=== PATIENT | female | born 1950 | race Caucasian/White ===

== ENCOUNTER 2017-06-07 08:44 | Inpatient (IN) ==
--- NOTE | 2017-06-06 21:15 | Discharge Summary ---
<Kimberly Shanks - Last Filed: 06/06/17 21:13> Date of Encounter: 06/06/17 - Discharge Diagnosis (1) Instability of left knee joint Priority: Primary Status: Acute (2) Status post revision of total replacement of left knee Priority: Primary Status: Acute (3) Kidney injury Priority: Secondary Status: Chronic Qualifiers: Encounter type: sequela Laterality: unspecified laterality Qualified Code (s): S37.009S - Unspecified injury of unspecified kidney, sequela (4) Hypertension Priority: Secondary Status: Chronic Qualifiers: Hypertension type: essential hypertension Qualified Code(s): I10 - Essential (primary) hypertension (5) Obstructive sleep apnea Priority: Secondary Status: Chronic (6) Morbid obesity with BMI of 50.0-59.9, adult Priority: Secondary Status: Chronic (7) Thyroid disease Priority: Secondary Status: Chronic - Discharge Medications Home Medications: Cyclobenzaprine [Flexeril] 10 mg PO TID 07/03/16 [History] Levothyroxine [Synthroid] 50 mcg PO 0630 07/03/16 [History] Lisinopril [Zestril] 5 mg PO HS 07/03/16 [History] Nortriptyline [Pamelor] 25 mg PO HS 07/03/16 [History] Propranolol HCl [Innopran Xl] 120 mg PO DAILY 07/03/16 [History] Simvastatin [Zocor] 20 mg PO DAILY 07/03/16 [History] Triamterene/HCTZ 37.5/25mg [Dyazide] 1 each PO HS 07/03/16 [History] Aspirin Enteric Coated [Aspirin EC] 325 mg PO DAILY #21 tablet. 06/06/17 [Rx] OxyCODONE Immed Rel [Roxicodone 5 MG] 5 - 10 mg PO Q6H PRN #40 tablet 06/06/17 [ Rx] Aspirin [Lo-Dose Aspirin EC] 81 mg PO DAILY 06/07/17 [History] Allergies/Adverse Reactions: Allergies codeine Adverse Reaction (Verified 06/07/17 09:38) Chest Pain meperidine [From Demerol] Adverse Reaction (Verified 06/07/17 09:38) Chest Pain morphine Adverse Reaction (Verified 06/07/17 09:38) Itching Primary care physician: Jennifer Jimenez CNP - Patient Status Disposition: Transfer Inpatient Rehab Fac Condition: Good - Discharge Instructions Follow Up With: Jennifer Jimenez CNP [Primary Care Provider] - - Hospital Course Hospital course: Ms. Concepcion is a 67 year old female - Time Spent with Patient Total time spent providing and/or coordinating discharge services: <Selwyn Galdamez - Last Filed: 06/09/17 08:56> Date of Encounter: 06/09/17 Time of Encounter: 08:56 - Discharge Diagnosis (1) Hypertension Priority: Secondary Status: Chronic Qualifiers: Hypertension type: essential hypertension Qualified Code(s): I10 - Essential (primary) hypertension (2) Obstructive sleep apnea Priority: Secondary Status: Chronic (3) Morbid obesity with BMI of 50.0-59.9, adult Priority: Secondary Status: Chronic (4) Thyroid disease Priority: Secondary Status: Chronic (5) Instability of left knee joint Status: Acute (6) Status post revision of total replacement of left knee Priority: Primary Status: Acute Primary care physician: Jennifer Jimenez CNP - Patient Status Functional capacity at discharge: uses cane/walker Overall status at discharge: patient is progressing back to baseline - Hospital Course Hospital course: Ms. Concepcion is a 67 year old female Status post revision left knee surgery. The patient had an uneventful postoperative course. They received antibiotics and physical therapy and were discharged in stable condition. There will follow -up in the office in 2 weeks. - Time Spent with Patient Total time spent providing and/or coordinating discharge services:
[2017-06-07] MEDS ORDERED: CeFAZolin Pre 3,000 MG/100 ML 3,000 MG/100 ML BAG IVPB ONE (09:06)
--- NOTE | 2017-06-07 09:11 | History & Physical Report ---
Date of Encounter: 06/07/17 Time of Encounter: 09:10 24 Hour HP Update - Instructions Instructions: If the History and Physical is less than 30 days old and was completed prior to A.M. admission and or procedure and has NOT been updated on calendar day of procedure please complete this update prior to performing procedure. - Update Patient reports changes in Medical Condition: No Changes in examination, assessment, or condition: No Changes in Medication: No Preop tests/diagnostics Reviewed: Yes Surgery Remains Indicated: Yes Consent for Planned Operative Procedure(s) Verified: Yes - Pre-Operative Checklist Preoperative Checklist Indicated: No Prophylactic Antibiotic Ordered: Yes Is VTE Prophylaxis Indicated?: Yes
[2017-06-07] MEDS ORDERED: Ringers Solution, Lactated 1,000 ML IVC SCH ×2 (09:15→13:18)
--- NOTE | 2017-06-07 09:33 | Anesthesia Evaluation PreOp ---
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: Denies Any Significant HX Anesthesia History: MH (Daughter with hx of MH; has never personally had this reaction although since her also has never had MH and the genetics behind the MH was never identified - will not administer volatiles or succinylcholine to this patient) Alcohol Use: none Drug use: none Medications and Allergies Cyclobenzaprine [Flexeril] 10 mg PO TID 07/03/16 [History] Docusate [Colace] 100 mg PO DAILY 07/03/16 [History] Levothyroxine [Synthroid] 50 mcg PO 30 07/03/16 [History] Lisinopril [Zestril] 5 mg PO DAILY 07/03/16 [History] Nortriptyline [Pamelor] 25 mg PO DAILY 07/03/16 [History] Propranolol HCl [Innopran Xl] 120 mg PO DAILY 07/03/16 [History] Simvastatin [Zocor] 20 mg PO DAILY 07/03/16 [History] Triamterene/HCTZ 37.5/25mg [Dyazide] 1 each PO HS 07/03/16 [History] Aspirin Enteric Coated [Aspirin EC] 325 mg PO DAILY #21 tablet. 06/06/17 [Rx] OxyCODONE Immed Rel [Roxicodone 5 MG] 5 - 10 mg PO Q6H PRN #40 tablet 06/06/17 [ Rx] Allergies codeine Adverse Reaction (Verified 07/03/16 13:16) Chest Pain meperidine [From Demerol] Adverse Reaction (Verified 07/03/16 13:16) Chest Pain morphine Adverse Reaction (Verified 07/03/16 13:16) Itching - Meds/Allergy Pre-op Review Medications Reviewed: Yes Allergies Reviewed: Yes Beta Blockers on Current Med List: Yes (propranolol) If Beta Blockers taken, Date/Time (Last Dose taken): 06-07-17 propranolol 6:30 am Anesthesia Results - Labs Laboratory Tests 06/02/17 06/02/17 06/02/17 14:00 14:00 14:00 WBC 8.0 Hgb 12.4 Hct 40.6 Plt Count 295 PT 10.8 INR 1.0 APTT 31.5 Sodium 140 Potassium 4.5 Chloride 103 Carbon Dioxide 30 H BUN 26 H Creatinine 1.09 Est GFR ( Amer) > 60 Est GFR (Non-Af Amer) 50 L BUN/Creatinine Ratio 24 - Imaging EKG: report reviewed, image reviewed (SINUS RHYTHM LOW QRS VOLTAGE IN PRECORDIAL LEADS POSSIBLE ANTERIOR MYOCARDIAL INFARCTION, PROBABLY OLD POSSIBLE INFERIOR MYOCARDIAL INFARCTION, PROBABLY OLD) Anesthesia Exam Last Vital Signs Temp 97.7 F 06/07/17 09:12 Pulse 59 06/07/17 09:12 Resp 18 06/07/17 09:12 BP 163/92 06/07/17 09:12 Pulse Ox 98 06/07/17 09:12 Weight: 166 kg, BMI 59 - HEENT Pupil (Motor): Pupils equal, EOMI Mallampati: II Teeth: Poor dentition Oral Opening: Greater than 3 - ASSISTANT PROFESSOR OF PHYSICS LOC: Oriented ASSISTANT PROFESSOR OF PHYSICS Motor: Normal RUE, Normal LUE, Normal RLE, Normal LLE, Normal Face - Cardiac Rhythm: Regular Murmur: None - Pulmonary Breath Sounds: bilateral Clear Respiratory Effort: Symmetrical Anesthesia Assess/Plan ASA Score: 3 Modified Marilyn Scale for Level of Consciousness: Cooperative, oriented, and tranquil Anesthetic Plan: General, Regional, Precautions (no sux or volatile agents) Monitoring Plan: Standard Monitors Recovery Plan: PACU
[2017-06-07] MEDS ORDERED: *HR* Midazolam HCl 2 MG/2 ML VIAL ONE (09:40)
[2017-06-07] MEDS ORDERED: *HR* Propofol 200 MG/20 ML VIAL IVP ONE ×3 (09:40→11:35)
[2017-06-07] MEDS ORDERED: Lidocaine -MPF 2% 2 ML VIAL ONE (09:40)
[2017-06-07] MEDS ORDERED: *HR* FentaNYL (PF) 100 MCG/2 ML VIAL ONE (09:40)
[2017-06-07] MEDS ORDERED: Propofol 500 MG/50 ML INFUS..BTL ONE (09:41)
[2017-06-07] MEDS ORDERED: Ketamine *HR* 500 MG/10 ML MDV ONE (09:50)
[2017-06-07] MEDS ORDERED: ROPIVACAINE HCL/PF 0.5% 30 ML VIAL ONE (10:15)
[2017-06-07] MEDS ORDERED: Bupivacaine/Clonidine Syringe 1 EACH SYRINGE ONE (10:16)
--- NOTE | 2017-06-07 10:34 | Orthopedic Operative Note ---
Date of procedure: 06/07/17 Pre-op diagnosis: right knee arthritis Post-op diagnosis: same Anesthesia: GETA Surgeon: Selwyn Galdamez Escort Blind: Kimberly Shanks Condition: stable Disposition: PACU
[2017-06-07] MEDS ORDERED: *HR* Promethazine 25 MG/ML VIAL IVP PRN (11:13)
[2017-06-07] MEDS ORDERED: *HR* HYDROmorphone (PF) 1 MG/ML SYRINGE IVP PRN ×2 (11:13→13:18)
--- NOTE | 2017-06-07 11:15 | Physician Discharge Referral ---
ExtendedCare Referral Info Transfer To: F Provider in Charge: Provider in Charge after Transfer: PCP Institutional Level of Care: Skilled - Diagnosis (1) Instability of left knee joint Priority: Primary Status: Acute (2) Status post revision of total replacement of left knee Priority: Primary Status: Acute (3) Kidney injury Priority: Secondary Status: Chronic (4) Hypertension Priority: Secondary Status: Chronic (5) Obstructive sleep apnea Priority: Secondary Status: Chronic (6) Morbid obesity with BMI of 50.0-59.9, adult Priority: Secondary Status: Chronic (7) Thyroid disease Priority: Secondary Status: Chronic Expected Duration of Placement: < 30 days Prognosis: Good - Transfer Medications Prescriptions: Aspirin Enteric Coated [Aspirin EC] 325 mg PO DAILY #21 tablet. OxyGANGADONLeobardo Immed Rel [Roxicodone 5 MG] 5 - 10 mg PO Q6H PRN #40 tablet PRN Reason: Pain Home Medications: Cyclobenzaprine [Flexeril] 10 mg PO TID 07/03/16 [History] Levothyroxine [Synthroid] 50 mcg PO 0630 07/03/16 [History] Lisinopril [Zestril] 5 mg PO HS 07/03/16 [History] Nortriptyline [Pamelor] 25 mg PO HS 07/03/16 [History] Propranolol HCl [Innopran Xl] 120 mg PO DAILY 07/03/16 [History] Simvastatin [Zocor] 20 mg PO DAILY 07/03/16 [History] Triamterene/HCTZ 37.5/25mg [Dyazide] 1 each PO HS 07/03/16 [History] Aspirin Enteric Coated [Aspirin EC] 325 mg PO DAILY #21 tablet. 06/06/17 [Rx] OxyCODONE Immed Rel [Roxicodone 5 MG] 5 - 10 mg PO Q6H PRN #40 tablet 06/06/17 [ Rx] Aspirin [Lo-Dose Aspirin EC] 81 mg PO DAILY 06/07/17 [History] Allergies/Adverse Reactions: Allergies codeine Adverse Reaction (Verified 06/07/17 09:38) Chest Pain meperidine [From Demerol] Adverse Reaction (Verified 06/07/17 09:38) Chest Pain morphine Adverse Reaction (Verified 06/07/17 09:38) Itching - Respiratory Orders None Smoking Cessation: Smoking cessation has been advised. For more information, call the [place] Tobacco Quit Line at 9-161-TSAU-NOW. - Lab Orders Lab Orders: CBC, U/A - Ancillary Orders May use pressure relief devices daily prn, May go on EMILIA w/family/respon democrat w /meds at nurse discretion PRN, May consult with Dentist, Intermediate Accountant, Compugraph Operator PRN - Mobility Orders Chair, Ambulate - Rehabiliation Orders Rehab Potential: Good Rehab Orders: ROM Exercises (No KNEE RANGE OF MOTION, LOCKED IN EXTENSION IN T- SCOPE BRACE. WBAT), Evaluation for Physical Therapy (No KNEE RANGE OF MOTION, LOCKED IN EXTENSION IN T-SCOPE BRACE. WBAT), Evaluation for Occupational Therapy Other: No KNEE RANGE OF MOTION, LOCKED IN EXTENSION IN T-SCOPE BRACE. WBAT - Treatments Skin tear care topically daily PRN per policy List/Other: Opsite dressing, leave intact until first post-operative visit. If dressing becomes >50% saturated, contact office, remove dressing and place appropriate dressing in its place. Do not allow for dressing to get wet. [place] in place. Plan to remove day #14-21. PT: Precautions x 6 weeks - No KNEE RANGE OF MOTION, LOCKED IN EXTENSION IN T- SCOPE BRACE. WBAT Apply cold therapy wrap 3-6x/day for 20 minutes at a time. Encourage ambulation throughout the day and incentive spirometer 10x/hour. Elevate affected extremity above heart as tolerated. Brace: Keep brace in place X 6 WEEKS. OK to remove to shower. Keep incision protected with ABD pads and DIAMOND wrap. Cleanse leg daily. CERTIFICATION: I certify that the transfer of the above named patient to an Extended Care Facility is necessary for the continuing treatment of the diagnosis listed. The above information is true and accurate reflection of patient's current condition. Confidential - Redisclosure prohibited without a patient's written consent.
[2017-06-07] MEDS ORDERED: *HR* HYDROmorphone 2 MG/ML SYRINGE ONE (11:17)
--- NOTE | 2017-06-07 11:23 | Orthopedic Operative Note ---
Date of procedure: 06/07/17 Pre-op diagnosis: Instability of left total knee Post-op diagnosis: same Procedure: Procedure: Left revision total knee tibial Evelyn Estimated blood loss: 200 Hardware: Metal and polyethylene replacement. Depuy 17.5 constrained poly Exam Under anesthesia: Well-healed incision limited motion flexion and extension Procedural Notes: Patient with varus instability allowing the tibial Evelyn to rotate and sublux. Operative procedure: The patient was brought to the operating room and placed on the operating room table. After general anesthesia was administered the operative knee was examined. Findings were noted in the exam under anesthesia. The operative extremity was prepped and draped in sterile surgical fashion. The patient received IV antibiotics prior to skin incision. A standard midline incision was made centered over the patella through the old incision. The incision was made through the skin and subcutaneous tissue. There was some soft tissue nodules in the subcutaneous tissue which were sent as specimen. A medial parapatellar tendon approach was performed. Care was taken to preserve tissue along the medial aspect of the patella. And to protect the patella tendon. The deep MCL was released off the medial tibia. The infra patella fat pad was excised. Fluid was encountered this was normal joint fluid, Cultures were obtained and gram . The knee was brought into flexion the poly-was deduced. Examination revealed the varus instability. The poly-was then removed. This was then replaced with a 17.5 constrained Evelyn. This was 2 sizes up from the 12.5 was originally in the patient. This helped stabilize the patient's varus instability, required hyperflexion to dislocate the component. Based on the patient's body habitus and believes that hyperflexion would not be achieved, as well as significant comorbidities decision was made to stay with the poly-exchange. The knee sat for 2 minutes with a Betadine saline solution. It was irrigated out with 2 L of pulse irrigation. The knee was closed by the PA. The extensor mechanism was closed with a running #2 Fiberwire suture and a running #2 PDS suture. The deep tissue was irrigated and closed deep with #1 PDS suture superficially with 0 PDS suture. The skin was closed with skin angela. The patient was placed in a sterile dressing and postoperative brace. They were extubated and transferred to recovery room in stable condition. Anesthesia: GETA Surgeon: Selwyn Galdamez [place]aver Trapper: Kimberly Shanks Condition: stable Disposition: PACU
[2017-06-07 12:45] LABS: Hematocrit 35.9 % (35.3-44.9); Hemoglobin 10.9 g/dL (11.5-15.4)
--- NOTE | 2017-06-07 12:52 | Anesthesia Evaluation Post Op ---
Date of Encounter: 06/07/17 Time of Encounter: 12:53 - Vital Signs Vital Signs: Vital Signs - Last 8 Hours Temp Pulse Resp BP Pulse Ox 06/07/17 12:44 45 20 124/79 96 06/07/17 12:34 97.1 F L 47 18 119/76 97 06/07/17 12:24 48 22 121/80 96 06/07/17 12:14 47 20 116/70 96 06/07/17 12:04 97.4 F L 50 18 112/76 95 06/07/17 10:26 86 136/86 97 06/07/17 09:12 97.7 F 59 18 163/92 98 06/07/17 09:05 97.7 F 59 18 163/92 98 Intake and Output 06/06/17 06/07/17 06/07/17 23:59 07:59 15:59 Intake Total 100 / 100 Output Total 200 / 200 Balance -100 / -100 Intake: IV Fluids 100 / 100 Ancef Premix 3,000 MG/100 100 / 100 ML 3,000 mg In 100 ml @ 200 mls/hr IVPB PREOP ONE Rx#:[id number] Output: Estimated Blood Loss 200 / 200 Other: Weight 165.561 kg Patient Weight 06/07/17 23:59 Weight 165.561 kg - Lungs Lungs: Clear Ascult./Percussion - Airway Airway: Non-obstructed - Cardiovascular Regular Rate, Baseline Rhythm - Mental Status Mental Status: Alert & Oriented, Answers Appropriately - Pain Pain Scale: 0 Pain Scale used: Numeric (1 - 10) - Nausea Vomiting Nausea Vomiting: Not Present - Hydration Hydration: Tolerates oral liquids - Discharge PostOp Status: Transfer Patient to floor
[2017-06-07] MEDS ORDERED: Ondansetron 4 MG/2 ML VIAL IVP PRN (13:18)
[2017-06-07] MEDS ORDERED: Temazepam 15 MG CAPSULE PO PRN (13:18)
[2017-06-07] MEDS ORDERED: MOM Conc 10 ML UD.LIQ PO PRN (13:18)
[2017-06-07] MEDS ORDERED: Naloxone 0.4 MG/ML INJ IVP PRN (13:18)
[2017-06-07] MEDS ORDERED: Sennosides 8.6 MG TABLET PO PRN (13:18)
[2017-06-07] MEDS ORDERED: *HR* OxyCODONE Immed Rel 5 MG TABLET PO PRN (13:18)
[2017-06-07] MEDS: *HR* OxyCODONE Immed Rel 5 MG TABLET PO PRN ×2 (15:18→20:16)
[2017-06-07] MEDS: ceFAZolin 3,000 MG in D5% in Water 100 ML IVPB SCH (15:57)
[2017-06-07] MEDS: *HR* Enoxaparin 30 MG/0.3 ML SYRINGE SQ SCH (17:29)
[2017-06-07] MEDS ORDERED: *HR* Enoxaparin 30 MG/0.3 ML SYRINGE SQ SCH (18:00)
[2017-06-08] MEDS: ceFAZolin 3,000 MG in D5% in Water 100 ML IVPB SCH (00:31)
[2017-06-08 06:23] LABS: Hematocrit 38.1 % (35.3-44.9); Hemoglobin 11.7 g/dL (11.5-15.4)
[2017-06-08 06:40] LABS: BUN/Creatinine Ratio 20 (6-26); Blood Urea Nitrogen 18 mg/dL (7-20); Calcium 9.5 mg/dL (8.6-10.8); Carbon Dioxide 27 mEq/L (19-29); Chloride 104 mEq/L (98-109); Glucose 138 mg/dL (70-99); Osmolality,Calculated 288 (280-300); Potassium 4.8 mEq/L (3.5-4.5); Sodium 137 mEq/L (136-145); eGFR For African Americans > 60 (> 60); eGFR For Non-African Americans > 60 (> 60)
[2017-06-08] MEDS: *HR* Enoxaparin 30 MG/0.3 ML SYRINGE SQ SCH ×2 (06:43→17:48)
[2017-06-08] MEDS: *HR* OxyCODONE Immed Rel 5 MG TABLET PO PRN ×2 (08:14→19:59)
[2017-06-08] MEDS: Aspirin Enteric Coated 81 MG Tablet PO SCH (08:14)
[2017-06-08] MEDS: Propranolol LA (24 HR) 60 MG CAP.SA.24H PO SCH (08:15)
--- NOTE | 2017-06-08 12:05 | Orthopedics Progress Note ---
Date of Encounter: 06/08/17 Time of Encounter: 08:00 - Assessment and Plan (1) Instability of left knee joint Current Visit: Yes Status: Acute (2) Status post revision of total replacement of left knee Current Visit: Yes Status: Acute Left TKR - Revision, [facility] 06/07/17 POD#1 Patient doing well, A&O in chair, Pain controlled. Vitals stable. Afebrile. H/H - Stable - 11.7/38.1 - asymptomatic Plan: Continue in T-Scope brace x 6 weeks, no knee flexion. RLE: WBAT D/C to ECF likely tomorrow* pending Auth (3) Kidney injury Current Visit: Yes Status: Chronic Qualifiers: Encounter type: sequela Laterality: unspecified laterality Qualified Code (s): S37.009S - Unspecified injury of unspecified kidney, sequela (4) Hypertension Current Visit: No Status: Chronic Qualifiers: Hypertension type: essential hypertension Qualified Code(s): I10 - Essential (primary) hypertension (5) Obstructive sleep apnea Current Visit: No Status: Chronic (6) Morbid obesity with BMI of 50.0-59.9, adult Current Visit: No Status: Chronic (7) Thyroid disease Current Visit: No Status: Chronic Subjective Principal diagnosis: Left TKR - Revision, [facility] 06/07/17 Interval history: Left TKR - Revision, [facility] 06/07/17 POD#1 Patient doing well, A&O in chair, Pain controlled. Vitals stable. Afebrile. H/H - Stable - 11.7/38.1 - asymptomatic LLE: Minimal swelling, no erythema or ecchymosis noted. No calf tenderness or warmth noted. ROM limited. NV intact distally. In Tscope brace. Plan: Continue in T-Scope brace x 6 weeks, no knee flexion. RLE: WBAT D/C to ECF likely tomorrow* pending Auth Objective Vital signs: Vital Signs Temp Pulse Resp BP Pulse Ox 06/08/17 11:08 97.5 F L 62 20 138/77 93 06/08/17 08:21 99 06/08/17 06:36 97.5 F L 49 16 130/72 94 06/08/17 04:57 98.9 F 60 18 124/75 99 06/08/17 00:36 97.6 F 53 17 135/78 97 06/07/17 20:42 97.7 F 68 20 135/82 95 06/07/17 16:02 97.6 F 61 14 151/94 93 06/07/17 15:06 97.6 F 53 16 137/70 94 06/07/17 13:57 97.2 F L 49 18 116/60 98 06/07/17 13:38 97.5 F L 46 16 137/82 100 06/07/17 13:16 96 06/07/17 13:05 97.0 F L 46 10 131/80 98 06/07/17 12:54 97.2 F L 46 20 124/77 97 06/07/17 12:44 45 20 124/79 96 06/07/17 12:34 97.1 F L 47 18 119/76 97 06/07/17 12:24 48 22 121/80 96 06/07/17 12:14 47 20 116/70 96 06/07/17 12:04 97.4 F L 50 18 112/76 95 Intake and Output 06/07/17 06/08/17 06/08/17 23:59 07:59 15:59 Intake Total 200 / 200 240 / 240 Output Total 1000 / 1000 Balance 200 / 200 -1000 / -1000 240 / 240 Intake: IV Fluids 200 / 200 Ancef 3,000 MG In 200 / 200 Dextrose 5% 100 ML @ 200 mls/hr IVPB Q8HR MARTINE Rx#: [id number] Oral 240 / 240 Output: Urine 1000 / 1000 Other: Meal Breakfast Percent of Meal Consumed 100% # Voids 1 Incision: clean and dry - Labs CBC & BMP: 06/08/17 05:10 06/08/17 05:10 Labs: Abnormal lab results Potassium 4.8 mEq/L (3.5-4.5) H 06/08/17 05:10 Glucose 138 mg/dL (70-99) H 06/08/17 05:10 - VTE Documentation of Mechanical Device: Venous foot pump, device Consult Discharge Plan - Plan Referrals: Jennifer Jimenez, SCOOP FILLER [Primary Care Provider] -
--- NOTE | 2017-06-08 12:31 | Event Note ---
Date of Encounter: 06/08/17 Time of Encounter: 12:30 PCR - POD#1 - Left Knee - Poly component exchange 06/07/17 - GRAM STAIN NEGATIVE , AWAITING CULTURES Tscope brace locked in extension, no knee ROM x 6 weeks Patient seen at bedside. Pain control: adequate Participating in PT. Tscope brace locked in extension, no knee ROM x 6 weeks, WBAT All questions and concerns addressed. Educated on use of incentive spirometer, ambulation, and hydration. Patient educated on post-operative restrictions and care. Addressed: Brace adjusted D/C plan: ECF
[2017-06-09] MEDS: *HR* OxyCODONE Immed Rel 5 MG TABLET PO PRN ×3 (01:45→12:44)
[2017-06-09 05:53] LABS: Hematocrit 37.4 % (35.3-44.9); Hemoglobin 11.4 g/dL (11.5-15.4)
[2017-06-09 06:12] LABS: BUN/Creatinine Ratio 27 (6-26); Blood Urea Nitrogen 26 mg/dL (7-20); Calcium 9.6 mg/dL (8.6-10.8); Carbon Dioxide 29 mEq/L (19-29); Chloride 103 mEq/L (98-109); Glucose 109 mg/dL (70-99); Osmolality,Calculated 289 (280-300); Potassium 4.6 mEq/L (3.5-4.5); Sodium 137 mEq/L (136-145); eGFR For African Americans > 60 (> 60); eGFR For Non-African Americans 57 (> 60)
[2017-06-09] MEDS: *HR* Enoxaparin 30 MG/0.3 ML SYRINGE SQ SCH (06:26)
[2017-06-09] MEDS: Propranolol LA (24 HR) 60 MG CAP.SA.24H PO SCH (08:31)
[2017-06-09] MEDS: Aspirin Enteric Coated 81 MG Tablet PO SCH (08:31)
--- NOTE | 2017-06-09 08:57 | Orthopedics Progress Note ---
Date of Encounter: 06/09/17 Time of Encounter: 08:57 - Assessment and Plan (1) Hypertension Current Visit: No Status: Chronic Qualifiers: Hypertension type: essential hypertension Qualified Code(s): I10 - Essential (primary) hypertension (2) Obstructive sleep apnea Current Visit: No Status: Chronic (3) Morbid obesity with BMI of 50.0-59.9, adult Current Visit: No Status: Chronic (4) Thyroid disease Current Visit: No Status: Chronic (5) Instability of left knee joint Current Visit: Yes Status: Acute (6) Status post revision of total replacement of left knee Current Visit: Yes Status: Acute Subjective Principal diagnosis: Left TKR - Revision, [facility] 06/07/17 Interval history: Patient was seen this morning doing well without complaints. Afebrile vital signs stable. Operative extremity: Neurovascularly intact Dressing clean dry and intact Calves nontender Assessment and plan: Continue with postoperative care Hematocrit 37 discharged today Objective Vital signs: Vital Signs Temp Pulse Resp BP Pulse Ox 06/09/17 08:35 97 06/09/17 07:18 97.6 F 86 18 152/89 91 06/09/17 00:51 98.2 F 86 18 148/85 99 06/08/17 23:47 98 06/08/17 20:40 97.4 F L 60 18 148/74 98 06/08/17 15:25 97.6 F 62 18 138/83 93 06/08/17 11:08 97.5 F L 62 20 138/77 93 Intake and Output 06/08/17 06/09/17 06/09/17 23:59 07:59 15:59 Intake Total 240 / 240 400 / 400 Balance 240 / 240 400 / 400 Intake: Oral 240 / 240 400 / 400 Other: Meal Dinner Percent of Meal Consumed 75% # Voids 2 - Labs CBC & BMP: 06/09/17 05:06 06/09/17 05:06 Labs: Abnormal lab results Hgb 11.4 g/dL (11.5-15.4) L 06/09/17 05:06 Potassium 4.6 mEq/L (3.5-4.5) H 06/09/17 05:06 BUN 26 mg/dL (7-20) H 06/09/17 05:06 Est GFR (Non-Af Amer) 57 (> 60) L 06/09/17 05:06 BUN/Creatinine Ratio 27 (6-26) H 06/09/17 05:06 Glucose 109 mg/dL (70-99) H 06/09/17 05:06 - VTE Documentation of Mechanical Device: Venous foot pump, device Consult Discharge Plan - Plan Referrals: Jennifer Jimenez SEO STRATEGIST [Primary Care Provider] -
[2017-06-09 11:09] VITALS: BP 158/94
--- NOTE | 2017-06-09 14:48 | Event Note ---
Date of Encounter: 06/09/17 Time of Encounter: 11:50 PCR - POD#2 - Left Knee - Poly component exchange 06/07/17 - GRAM STAIN NEGATIVE , AWAITING CULTURES Tscope brace locked in extension, no knee ROM x 6 weeks Patient seen at bedside. Pain control: adequate Participating in PT. Tscope brace locked in extension, no knee ROM x 6 weeks, WBAT All questions and concerns addressed. Educated on use of incentive spirometer, ambulation, and hydration. Patient educated on post-operative restrictions and care. Addressed: Brace in appropriate position. D/C plan: ECF - auth received today - patient to d/c today
== END 2017-06-09 12:52 | DRG 467 ==
LOC: SAMDAY 08:44 → 3NENU 12:56
PROVIDERS: ADMIT Orthopaedic Surgery; ATTEND Orthopaedic Surgery